=== PATIENT | female | born 1940 | race Caucasian/White ===

== ENCOUNTER 2017-11-28 11:11 | Emergency (ER) | payer OTHER, BC ==
[2017-11-28 11:20] VITALS: BP 133/74; PULSE 83; TEMP 99; BMI 28.3
[2017-11-28] MEDS ORDERED: SODIUM CHLORIDE 0.9% 1000 ML INFUS.BAG IV ONE (12:25)
[2017-11-28] MEDS ORDERED: ALPRAZolam 1 MG TABLET PO ONE (12:25)
[2017-11-28] MEDS ORDERED: ALPRAZolam 0.25 MG TABLET ONE (12:38)
[2017-11-28 12:40] LABS: RDW 16.1 % (11.6-15.6)
--- NOTE | 2017-11-28 12:41 | PDOC ---
History of Present Illness - General Chief Complaint: Psychiatric Stated Complaint: im having panic attacks Time Seen by Provider: 11/28/17 11:19 History Source: Patient Exam Limitations: No Limitations - History of Present Illness Initial Comments: 11/28/17 12:33 77 yo F with h/o anxiety CLL here c/o anxiety attack for last 3 days. states she usually gets attack every few years. no cp no sob. does have occasional palpitations. states she is under stress because she has had a few falls on her right knee and is undergoing evaluation by a orthopedic surgeon dr. mcneil, is stressed about her knee. no swelling. no current pain. states she has been feeling lighteaded, dry mouth and anxious for 3 days. no si no hi no ah. take welbutrin for anxiety, has been taking tried to see a psychiatrist called two and never received a call back. Past History - Past Medical History Allergies/Adverse Reactions: Allergies Allergy/AdvReac Type Severity Reaction Status Date / Time No Known Allergies Allergy Verified 11/28/17 11:13 Home Medications: Ambulatory Orders Bupropion HCl [Wellbutrin Xl -] 150 mg PO DAILY 01/11/15 Escitalopram Oxalate [Lexapro -] 10 mg PO DAILY 01/11/15 Alprazolam [Xanax] 0.25 mg PO DAILY PRN #10 tablet MDD 1 11/28/17 Anemia: No Asthma: No Cancer: Yes (CLL) Cardiac Disorders: No CVA: No COPD: No CHF: No Dementia: No Diabetes: No GI Disorders: Yes (GERD) Disorders: No HTN: No Hypercholesterolemia: Yes Liver Disease: No Seizures: No Thyroid Disease: No - Surgical History Abdominal Surgery: No Appendectomy: No Cardiac Surgery: No Cholecystectomy: No Lung Surgery: No Neurologic Surgery: No Orthopedic Surgery: No - Suicide/Smoking/Psychosocial Hx Smoking History: Never smoked Hx Alcohol Use: No Drug/Substance Use Hx: No Substance Use Type: None Hx Substance Use Treatment: No Review of Systems - Review of Systems Constitutional: No: Chills, Diaphoresis HEENTM: Yes: Other (dry mucous membranes). No: Eye Pain, Blurred Vision Respiratory: No: Cough, Orthopnea Cardiac (ROS): No: Chest Pain, Edema : No: Burning, Dysuria Musculoskeletal: No: Back Pain, Gout, Joint Pain Neurological: Yes: Dizziness Psychiatric: Yes: Anxiety All Other Systems: Reviewed and Negative *Physical Exam - Vital Signs Last Vital Signs Temp Pulse Resp BP Pulse Ox 99 F 83 18 133/74 100 11/28/17 11:12 11/28/17 11:12 11/28/17 11:12 11/28/17 11:12 11/28/17 11:12 - Physical Exam Comments: 11/28/17 12:42 awake alert nad dry mucous membranes, dry lips . lungs clear bilaterally heart rrr no mrg abd soft nt nd. skin warm and dry. psych no si no hi. anxious appearing, fidgeting. normal affect. ED Treatment Course - LABORATORY CBC & Chemistry Diagram: 11/28/17 12:27 11/28/17 12:27 Medical Decision Making - Medical Decision Making 11/28/17 12:44 differential anxiety, dysrhtymia, anemia, electrolyte abnormalities. dehydration. plan iv hydration labs ekg. anxioulytics reassess. 11/28/17 14:36 labs noted for elevated wbc. pt h/o cll. per pcp last was 16 in 05/2017 has been referred to hematology many times but doesn't follow up. ua negative. otherwsie labs unremarkable. the xanax helped some. duplex for knee pain negative. will dc wiht referral for dr. santiago, and pcpl. *DC/Admit/Observation/Transfer Diagnosis at time of Disposition: Anxiety, Leukocytosis - Discharge Dispostion Disposition: HOME Condition at time of disposition: Improved - Prescriptions Prescriptions: Alprazolam [Xanax] 0.25 mg PO DAILY PRN #10 tablet MDD 1 PRN Reason: Anxiety - Referrals Referrals: Jake Roach [Primary Care Provider] - Bandar Sorensen NP [Nurse Practitioner] - Fabian Santiago MD [Staff Physician] - - Patient Instructions Printed Discharge Instructions: DI for Leukocytosis, Anxiety Disorders Additional Instructions: you should follow up with dr. Gordon, for psychiatry for your anxiety call to schedule. see referal information you can take xanax 0.25 mg as needed at night for anxiety. your WBC is 24, you need to follow up with a print color operator. call dr. Santiago to schedul see referral information. your ultrasound was negative for a blood clot. - Post Discharge Activity
[2017-11-28 12:46] LABS: HEMATOCRIT 43.1 % (32.4-45.2); HEMOGLOBIN 14.4 GM/dl (10.7-15.3); MCHC 33.5 g/dl (32.0-36.0); MEAN CELL VOLUME 89.6 fl (80-96); MEAN PLT VOLUME 9.4 fl (7.5-11.1); PLATELET COUNT 890 K/MM3 (134-434); RBC 4.81 M/mm3 (3.60-5.2); WHITE BLOOD COUNT 24.3 K/mm3 (4.0-10.8)
[2017-11-28 12:56] LABS: ALBUMIN 4.2 g/dl (3.5-5.0); ALK PHOS 75 U/L (32-92); ANION GAP 7 MMOL/L (8-16); BLOOD UREA NITROGEN 14 mg/dl (7-18); CALCIUM 9.2 mg/dl (8.4-10.2); CHLORIDE 106 mmol/L (98-107); CO2 25 mmol/L (22-28); CREATININE 0.8 mg/dl (0.6-1.3); GLUCOSE,RANDOM 106 mg/dl (74-106); SGOT/AST 24 U/L (10-42); SGPT/ALT 34 U/L (10-40); SODIUM 138 mmol/L (136-145); TOT PROT 6.4 g/dl (6.4-8.3)
[2017-11-28] MEDS ORDERED: IBUPROFEN 400 MG TABLET (FP) PO ONE ×2 (13:56→13:57)
[2017-11-28] MEDS ORDERED: IBUPROFEN 600 MG TABLET (FP) PO ONE (13:56)
[2017-11-28 14:05] LABS: URINE APPEARANCE Clear; URINE BILIRUBIN Negative (NEGATIVE); URINE COLOR Yellow; URINE GLUCOSE (UA) Negative (NEGATIVE); URINE KETONE 1+ (NEGATIVE); URINE LEUK ESTERASE Negative (NEGATIVE); URINE NITRITE Negative (NEGATIVE); URINE PROTEIN Negative (NEGATIVE); URINE UROBILINOGEN 0.2 (0.2-1.0)
[2017-11-28 14:28] LABS: PLATELET ESTIMATE INCREASED
--- NOTE | 2017-11-29 12:18 | EKG ---
Test Reason : Blood Pressure : / mmHG Vent. Rate : 076 BPM Atrial Rate : 076 BPM P-R Int : 142 ms QRS Dur : 082 ms QT Int : 406 ms P-R-T Axes : 065 006 035 degrees QTc Int : 456 ms NORMAL SINUS RHYTHM NONSPECIFIC T WAVE ABNORMALITY ABNORMAL ECG NO PREVIOUS ECGS AVAILABLE Confirmed by KELLY RUGGIERO, VIVIEN ([id number]) on 11/29/2017 12:18:27 PM Referred By: BHAVIN CHAPMAN Confirmed By:VIVIEN MENDOZA MD
== END 2017-11-28 14:53 | disposition home or self-care (01) ==
LOC: FER 11:11 → SUPCPDRO 11:11 → FER 14:53
PROC: 3E0337Z Introduction of Electrolytic and Water Balance Substance into Peripheral Vein, Percutaneous Approach (ICD-10-PCS; principal; 2017-11-28)
DX: C91.10 Chronic lymphocytic leukemia of B-cell type not having achieved remission (principal); F41.9 Anxiety disorder, unspecified; D72.829 Elevated white blood cell count, unspecified; E78.00 Pure hypercholesterolemia, unspecified; K21.9 Gastro-esophageal reflux disease without esophagitis
CPT/HCPCS: 36415; 80053; 81003; 84443; 84484; 85025; 93005; 93971-TC; 96361; 96374; 99283-25; J7030

== ENCOUNTER 2017-12-10 08:44 | Emergency (ER) | payer OTHER, BC ==
[2017-12-10 08:49] VITALS: BP 129/75; PULSE 70; TEMP 98.3; BMI 26.5
[2017-12-10] MEDS ORDERED: LORazepam 1 MG TABLET PO ONE (09:19)
[2017-12-10] MEDS ORDERED: LORazepam 0.5 MG TABLET ONE (09:22)
--- NOTE | 2017-12-10 09:24 | PDOC ---
History of Present Illness - General Chief Complaint: Lightheaded Stated Complaint: light headed Time Seen by Provider: 12/10/17 08:45 History Source: Patient, Spouse, Old Records Exam Limitations: No Limitations - History of Present Illness Initial Comments: 12/10/17 09:19 77-year-old female with history of CLL, depression, anxiety presents with panic attack. Patient reports that she has spent many years dealing with depression anxiety and in the last several months, to symptoms worsen. She will wake up daily with panic attacks, general anxiety. She reports feeling general malaise and decreased appetite because of her anxiety. The patient was seen here approximately 2 weeks ago and evaluated. At that time, patient had elevated white blood cell count. She did follow up with a window installation subcontractor with her blood work and reported at that time that this is consistent with her CLL and that no interventions were required at the time. 2 weeks ago, the patient was started on Xanax 0.25 mg that had gradually increased to 3 times a day. Patient reports adherence to the medication but reported no improvement of symptoms. The patient attempted to call her psychiatrist today, but came to the ER because she was unable to get hold of him. Patient denies chest pain or short of breath. Denies suicidal or homicidal ideation. Patient reporting her panic attack. Denies other symptoms such as fevers, chills, cough, vomiting, diarrhea , dysuria. She is requesting a referral for a second opinion for psychiatrist. Past History - Past Medical History Allergies/Adverse Reactions: Allergies Allergy/AdvReac Type Severity Reaction Status Date / Time No Known Allergies Allergy Verified 12/10/17 08:45 Home Medications: Ambulatory Orders Bupropion HCl [Wellbutrin Xl -] 150 mg PO DAILY 01/11/15 Escitalopram Oxalate [Lexapro -] 10 mg PO DAILY 01/11/15 Alprazolam [Xanax] 0.25 mg PO DAILY PRN #10 tablet MDD 1 11/28/17 Anemia: No Asthma: No Cancer: Yes (CLL) Cardiac Disorders: No CVA: No COPD: No CHF: No Dementia: No Diabetes: No GI Disorders: Yes (GERD) Disorders: No HTN: No Hypercholesterolemia: Yes Liver Disease: No Seizures: No Thyroid Disease: No Other medical history: falls - Surgical History Abdominal Surgery: No Appendectomy: No Cardiac Surgery: No Cholecystectomy: No Lung Surgery: No Neurologic Surgery: No Orthopedic Surgery: No - Suicide/Smoking/Psychosocial Hx Smoking History: Never smoked Hx Alcohol Use: No Drug/Substance Use Hx: No Substance Use Type: None Hx Substance Use Treatment: No Review of Systems - Review of Systems Able to Perform ROS?: Yes Comments:: 12/10/17 09:24 GENERAL/CONSTITUTIONAL: [No fever or chills. No weakness. No weight change.] HEAD, EYES, EARS, NOSE AND THROAT: [No change in vision. No ear pain or discharge. No sore throat.] CARDIOVASCULAR: [No chest pain or shortness of breath.] RESPIRATORY: [No cough, wheezing, or hemoptysis.] GASTROINTESTINAL: [No nausea, vomiting, diarrhea or constipation. No rectal bleeding.] GENITOURINARY: [No dysuria, frequency, or change in urination.] MUSCULOSKELETAL: [No joint or muscle swelling or pain. No neck or back pain.] SKIN AND BREASTS: [No rash or easy bruising.] NEUROLOGIC: [No headache, vertigo, loss of consciousness, or loss of sensation.] PSYCHIATRIC: + anxiety ENDOCRINE: [No increased thirst. No abnormal weight change.] HEMATOLOGIC/LYMPHATIC: [No anemia, easy bleeding, or history of blood clots.] ALLERGIC/IMMUNOLOGIC: [No hives or skin allergy. No latex allergy.] *Physical Exam - Vital Signs Last Vital Signs Temp Pulse Resp BP Pulse Ox 98.3 F 70 18 129/75 98 12/10/17 08:45 12/10/17 08:45 12/10/17 08:45 12/10/17 08:45 12/10/17 08:45 - Physical Exam Comments: 12/10/17 09:33 GENERAL: Awake, alert, and fully oriented, in no acute distress HEAD: No signs of trauma EYES: EOMI, sclera anicteric, conjunctiva clear ENT: Auricles normal inspection, hearing grossly normal, nares patent, Moist mucosa NECK: Normal ROM, supple LUNGS: Breath sounds equal, clear to auscultation bilaterally. No wheezes, and no crackles HEART: Regular rate and rhythm, normal S1 and S2, no murmurs, rubs or gallops ABDOMEN: Soft, nontender, No guarding, no rebound. No masses EXTREMITIES: Normal range of motion, no edema. No clubbing or cyanosis. No cords, erythema, or tenderness NEUROLOGICAL: Cranial nerves II through XII grossly intact. Normal speech, normal gait SKIN: Warm, Dry, normal turgor, no rashes or lesions noted. PSYCH: +anxious Medical Decision Making - Medical Decision Making 12/10/17 09:34 Vital Signs Temp Pulse Resp BP Pulse Ox 98.3 F 70 18 129/75 98 12/10/17 08:45 12/10/17 08:45 12/10/17 08:45 12/10/17 08:45 12/10/17 08:45 I had a lengthy discussion with the patient in regards to her history and physical. I do suspect that this is likely a panic attack and anxiety and not currently an medical component. The patient reports that she's been having daily panic attacks without relief from 0.25 mg of Xanax. She denies any other symptoms. The patient is requesting a referral to another psychiatrist. She is currently also seeing a psychologist. At this time, I will trial 1 mg oral Ativan and assess the patient. Either way, the patient will need a referral for outpatient psych management. 12/10/17 10:10 Pt feels relief of symptoms. She and her would like to go home. I advised the patient that she should follow up with her psychiatrist in regards for medication management. Pt feels comfortable with that plan. *DC/Admit/Observation/Transfer Diagnosis at time of Disposition: Anxiety - Discharge Dispostion Disposition: HOME Condition at time of disposition: Improved Decision to Admit order: No - Referrals Referrals: Kelly Vega MD [Staff Physician] - - Patient Instructions Printed Discharge Instructions: DI for Anxiety -- Adult Additional Instructions: You have received 1 mg ativan by mouth (one time dose). Please follow up with your psychiatrist. Continue your xanax prescription as written by your psychiatrist. Call to schedule an appointment. - Post Discharge Activity
== END 2017-12-10 10:17 | disposition home or self-care (01) ==
LOC: FER 08:44
DX: F41.0 Panic disorder [episodic paroxysmal anxiety] (principal); C91.10 Chronic lymphocytic leukemia of B-cell type not having achieved remission; F41.8 Other specified anxiety disorders; K21.9 Gastro-esophageal reflux disease without esophagitis; E78.00 Pure hypercholesterolemia, unspecified
CPT/HCPCS: 99281-25

== ENCOUNTER 2017-12-29 10:08 | Emergency (ER) | payer OTHER, BC ==
[2017-12-29 10:23] VITALS: BP 132/70; PULSE 80; TEMP 98.1; BMI 27.4
--- NOTE | 2017-12-29 11:47 | PDOC ---
History of Present Illness - General Chief Complaint: Psychiatric Stated Complaint: "PANIC ATTACK " LIGHTHEADED Time Seen by Provider: 12/29/17 11:17 History Source: Patient Exam Limitations: No Limitations - History of Present Illness Initial Comments: 77F with pmh of CLL, depression, anxiety presents with acute on chronic symptoms on anxiety disorder Patient reports that she has become anxious since her fall 3 months ago. Was last seen in the ED 20 days ago for the same symptoms. Was given a refferal for a psychiatrist but never followed through. Now asking for Ativan to cam her down. Patient has a chronically elevated white blood cell count. She did follow up with a customer leader with her blood work 2 weeks ago and was told she didn't need medication for it. Patient denies chest pain or short of breath. Denies suicidal or homicidal ideation. Patient reporting her panic attack. Denies other symptoms such as fevers, chills, cough, vomiting, diarrhea, dysuria. Past History - Past Medical History Allergies/Adverse Reactions: Allergies No Known Allergies Allergy (Verified 12/29/17 10:09) Home Medications: Ambulatory Orders Bupropion HCl [Wellbutrin Xl -] 150 mg PO DAILY 01/11/15 Escitalopram Oxalate [Lexapro -] 10 mg PO DAILY 01/11/15 Alprazolam [Xanax] 0.25 mg PO DAILY PRN #10 tablet MDD 1 11/28/17 - Social History Smoking Status: Former smoker *Physical Exam - Vital Signs Last Vital Signs Temp Pulse Resp BP Pulse Ox 98.1 F 80 16 132/70 100 12/29/17 10:09 12/29/17 10:09 12/29/17 10:09 12/29/17 10:09 12/29/17 10:09 - Physical Exam General Appearance: Yes: Nourished, Disheveled HEENT: positive: EOMI, SHEILA, Normal ENT Inspection Neck: positive: Normal Thyroid Respiratory/Chest: positive: Lungs Clear, Normal Breath Sounds. negative: Chest Tender, Respiratory Distress Cardiovascular: positive: Regular Rhythm, Regular Rate, S1, S2 Gastrointestinal/Abdominal: positive: Normal Bowel Sounds *DC/Admit/Observation/Transfer Diagnosis at time of Disposition: Anxiety - Discharge Dispostion Disposition: HOME Condition at time of disposition: Stable Decision to Admit order: No - Referrals Referrals: Kelly Vega MD [Staff Physician] - - Patient Instructions Printed Discharge Instructions: DI for Closed Head Injury Additional Instructions: Come back to the ER in 7-10 for staple removal. Come back to the ER for any new, worsening or concerning symptoms such as headache, memory loss, vomiting, difficulty sleeping, change in mood, or change in vision. - Post Discharge Activity
--- NOTE | 2017-12-29 11:52 | PDOC ---
Attending Attestation - Resident Resident Name: ArletTim - ED Attending Attestation I have performed the following: I have examined & evaluated the patient, The case was reviewed & discussed with the resident, I agree w/resident's findings & plan, Exceptions are as noted - HPI HPI: 12/29/17 12:26 77yo F hx depression, anxiety, CLL presents to the ED requesting ativan for her anxiety. Pt reports recent increase in sxs of sadness and anxiety over the last month since she suffered a fall. Pt states she was seen here recently and given ativan in the ED which "made me feel calm and like myself again." Pt and her report she has been on lexapro and wellbutryn for years but they don't seem to be working any more. They have seen 2 psychiatrists over the last few years but feel their psychiatrist is not listening to them. Pt was referred to Dr. Vega during her last visit but her states they have not followed up. Patient denies dizziness, headache, visual sxs, chest pain or short of breath. Denies suicidal or homicidal ideation. Denies AH/VH. Denies fevers, chills, cough, vomiting, diarrhea, dysuria. She requests referral to the psychiatrist again. - Physicial Exam PE: 12/29/17 12:33 GENERAL: Awake, alert, and fully oriented, in no acute distress. Resting comfortably in bed. HEAD: No signs of trauma EYES: PERRLA, EOMI, sclera anicteric, conjunctiva clear ENT: Auricles normal inspection, hearing grossly normal, nares patent, oropharynx clear without exudates. Moist mucosa NECK: Normal ROM, supple, no lymphadenopathy, JVD, or masses LUNGS: Breath sounds equal, clear to auscultation bilaterally. No wheezes, and no crackles HEART: Regular rate and rhythm, normal S1 and S2, no murmurs, rubs or gallops ABDOMEN: Soft, nontender, normoactive bowel sounds. No guarding, no rebound. No masses EXTREMITIES: Normal range of motion, no edema. No clubbing or cyanosis. No cords, erythema, or tenderness NEUROLOGICAL: Normal speech, cranial nerves intact, 5/5 strength in all 4 extremities, normal sensation to light touch in all 4 extremities, normal cerebellar exam, normal gait, normal reflexes and tone SKIN: Warm, Dry, normal turgor, no rashes or lesions noted. - Medical Decision Making 12/29/17 12:35 77yo F hx anxiety, depression, CLL (states she was told no tx needed) presents requesting ativan for anxiety. Pt does not appear overtly anxious on evaluation. Had a lengthy discussion with patient regarding the importance of follow up with her psychiatrist and that it can takes months to titrate medications. Pt has no emergent need for psych eval in ED. Since pt can not see her psychiatrist for another day, will dose pt 0.5mg ativan PO in the ED. Pt requested referral for our psychiatrist as well, all information was provided to pt as requested. Pt is clinically well appearing with normal vitals, requests DC home. I discussed the physical exam findings, ancillary test results and final diagnoses with the patient. I answered all of the patient's questions. The patient was satisfied with the care received and felt comfortable with the discharge plan and treatment plan. The patient will call their psychiatrist within 24 hours to arrange follow-up and will return to the Emergency Department with any new, persistent or worsening symptoms.
[2017-12-29] MEDS ORDERED: LORazepam 0.5 MG TABLET PO ONE (12:26)
[2017-12-29] MEDS ORDERED: LORazepam 0.5 MG TABLET ONE (12:28)
== END 2017-12-29 12:45 | disposition home or self-care (01) ==
LOC: FER 10:08
DX: F41.8 Other specified anxiety disorders (principal); C91.10 Chronic lymphocytic leukemia of B-cell type not having achieved remission; Z87.891 Personal history of nicotine dependence
CPT/HCPCS: 99282-25

== ENCOUNTER 2018-01-09 11:17 | Emergency (ER) | payer OTHER, BC ==
[2018-01-09 11:22] VITALS: BMI 24.9
[2018-01-09 11:24] VITALS: TEMP 98.1
--- NOTE | 2018-01-09 12:04 | PDOC ---
History of Present Illness - General Chief Complaint: Psychiatric Stated Complaint: PANICK ATTACK, LIGHTHEADED Time Seen by Provider: 01/09/18 12:03 - History of Present Illness Initial Comments: 01/09/18 13:54 Chief complaint: Panic attack History of present illness: Patient is suffers from recurrent panic attacks, maintained on Wellbutrin and Lexapro, recently had her Lexapro dose increased and subsequently began feeling more anxious. Says that "she feels like she is going to ". No known cardiac history Review of systems: Denies chest pain, shortness of breath, abdominal pain, nausea, vomiting, diarrhea, diaphoresis, visual or focal neurologic symptoms, unsteadiness of gait. Denies recent fever/chills, headache, URI symptoms, sore throat, cough. Remainder systems reviewed and found to be negative Past medical history: Depression, anxiety. Social/family history reviewed and noncontributory Physical exam: Alert and oriented well-developed well-nourished moderately anxious but no acute distress. Cooperative Afebrile, vital signs normal PERRLA, fundi benign, ENT clear Neck supple without bruit mass or nodes Chest clear to P&A with full breath sounds throughout bilaterally CV S1 and S2 normal without murmur rub or gallop pulses full and symmetric no JVD or edema no bruits 70 and regular Abdomen soft nontender without mass or organomegaly Neurological C2 to 12 intact. No focal sensory or motor deficits. Strength full and symmetric. Gait stable and unimpaired Extremities no CCE Skin clear, no rash, adequate turgor and wet mucous membranes Psychiatric: Admits a long-standing depression, worse recently, had a good day yesterday, but today feels worse. Denies suicidal ideations. Denies any suicidal actions or gestures in the past, or psychiatric hospitalizations. Impression: Anxiety, panic attacks, depression. Patient is treated by general M.D. current exacerbation of anxiety is probably related to recent increase in Lexapro dose. Plan: EKG is normal. Physical exam is normal. Small dose of Ativan recommended for several days until adjusted to increase Lexapro dose. Discussed exercises such as walking, yoga, meditation, other relaxation activities. Her significant other was present, and acknowledges that he has been attempting to have the patient go for walks and he will continue to do this. Spoke to her son by phone , informing him of the treatment plan. Patient appears reassured, asymptomatic now, and agrees to initiate contact with a psychiatrist for possibly improved management of her condition. Past History - Past Medical History Allergies/Adverse Reactions: Allergies Allergy/AdvReac Type Severity Reaction Status Date / Time No Known Allergies Allergy Verified 01/09/18 11:18 Home Medications: Ambulatory Orders Bupropion HCl [Wellbutrin Xl -] 150 mg PO DAILY 01/11/15 Escitalopram Oxalate [Lexapro -] 15 mg PO DAILY 01/11/15 LORazepam [Ativan] 0.5 mg PO BID PRN #6 tablet MDD 2 01/09/18 Anemia: No Asthma: No Cancer: Yes (CLL) Cardiac Disorders: No CVA: No COPD: No CHF: No Dementia: No Diabetes: No GI Disorders: Yes (GERD) Disorders: No HTN: No Hypercholesterolemia: Yes Liver Disease: No Psychiatric Problems: Yes (DEPRESSION) Seizures: No Thyroid Disease: No - Surgical History Abdominal Surgery: No Appendectomy: No Cardiac Surgery: No Cholecystectomy: No Lung Surgery: No Neurologic Surgery: No Orthopedic Surgery: No - Suicide/Smoking/Psychosocial Hx Smoking History: Never smoked Have you smoked in the past 12 months: No If you are a former smoker, when did you quit?: OVER 50 YEARS Hx Alcohol Use: No Drug/Substance Use Hx: No Substance Use Type: Alcohol Hx Substance Use Treatment: No *Physical Exam - Vital Signs Last Vital Signs Temp Pulse Resp BP Pulse Ox 98.1 F 81 17 127/80 100 01/09/18 11:18 01/09/18 11:18 01/09/18 11:18 01/09/18 11:18 01/09/18 11:18 Moderate Sedation - Procedure Monitoring Vital Signs: Procedure Monitoring Vital Signs Temperature 98.1 F 01/09/18 11:18 Pulse Rate 81 01/09/18 11:18 Respiratory Rate 17 01/09/18 11:18 Blood Pressure 127/80 01/09/18 11:18 O2 Sat by Pulse Oximetry (%) 100 01/09/18 11:18 *DC/Admit/Observation/Transfer Diagnosis at time of Disposition: Anxiety - Discharge Dispostion Disposition: HOME Condition at time of disposition: Improved Decision to Admit order: No - Prescriptions Prescriptions: LORazepam [Ativan] 0.5 mg PO BID PRN #6 tablet MDD 2 PRN Reason: Anxiety - Referrals Referrals: Jake Roach [Primary Care Provider] - 2 Days Kelly Vega MD [Staff Physician] - 1 week - Patient Instructions Printed Discharge Instructions: DI for Anxiety -- Adult, DI for Panic Disorder Additional Instructions: Regular exercise like walking daily, gentle yoga, or meditation can be extremely helpful. Medication to help UA just to your increased Lexapro dosage for 2-3 days is recommended Since illness is somewhat complicated, it is strongly recommended that you see a psychiatrist for further evaluation and treatment as recommended. - Post Discharge Activity
[2018-01-09] MEDS ORDERED: LORazepam 0.5 MG TABLET PO ONE (12:56)
[2018-01-09 13:03] VITALS: BP 116/85; PULSE 85
[2018-01-09] MEDS ORDERED: LORazepam 0.5 MG TABLET ONE (13:04)
--- NOTE | 2018-01-10 10:30 | EKG ---
Test Reason : Blood Pressure : / mmHG Vent. Rate : 074 BPM Atrial Rate : 074 BPM P-R Int : 138 ms QRS Dur : 076 ms QT Int : 398 ms P-R-T Axes : 068 -05 026 degrees QTc Int : 441 ms NORMAL SINUS RHYTHM NORMAL ECG WHEN COMPARED WITH ECG OF 28-NOV-2017 12:41, NO SIGNIFICANT CHANGE WAS FOUND Confirmed by VIVIEN MENDOZA MD ([id number]) on 01/10/2018 10:30:06 AM Referred By: NANNETTE DIAS Confirmed By:VIVIEN MENDOZA MD
== END 2018-01-09 13:24 | disposition home or self-care (01) ==
LOC: FER 11:17
DX: F41.9 Anxiety disorder, unspecified (principal); Z87.891 Personal history of nicotine dependence; E78.00 Pure hypercholesterolemia, unspecified; F32.9 Major depressive disorder, single episode, unspecified; C91.10 Chronic lymphocytic leukemia of B-cell type not having achieved remission
CPT/HCPCS: 93005; 99281-25

== ENCOUNTER 2018-08-26 06:11 | Emergency (ER) | payer OTHER, BC ==
[2018-08-26 06:23] VITALS: BMI 26.6
--- NOTE | 2018-08-26 06:45 | PDOC ---
History of Present Illness - General Chief Complaint: Injury Stated Complaint: S/P FALL, LACERATION TO FOREHEAD Time Seen by Provider: 08/26/18 06:18 - History of Present Illness Initial Comments: 08/26/18 06:47 78 years old with past medical history significant for anxiety and depression presents to the emergency department status post mechanical trip and fall and laceration. Last night patient was walking across the floor states she normally shuffles her feet states that her feet got caught under her she fell forward hit her head. Denies any prodrome of dizziness lightheadedness headache chest pain shortness of breath prior to the fall. Hit her head sustained a hematoma and laceration above her right eye did not want to come to the emergency department and went to bed. noted several hours later the pillowcase was covered in blood and convinced to come to the emergency department. Complaining of mild pain above the right eye as well as pain to right knee Past History - Past Medical History Allergies/Adverse Reactions: Allergies Allergy/AdvReac Type Severity Reaction Status Date / Time No Known Allergies Allergy Verified 01/09/18 11:18 Home Medications: Ambulatory Orders Bupropion HCl [Wellbutrin Xl -] 150 mg PO DAILY 01/11/15 Escitalopram Oxalate [Lexapro -] 15 mg PO DAILY 01/11/15 LORazepam [Ativan] 0.5 mg PO BID PRN #6 tablet MDD 2 01/09/18 Anemia: No Asthma: No Cancer: Yes (CLL) Cardiac Disorders: No CVA: No COPD: No CHF: No Dementia: No Diabetes: No GI Disorders: Yes (GERD) Disorders: No HTN: No Hypercholesterolemia: Yes Liver Disease: No Psychiatric Problems: Yes (DEPRESSION) Seizures: No Thyroid Disease: No - Surgical History Abdominal Surgery: No Appendectomy: No Cardiac Surgery: No Cholecystectomy: No Lung Surgery: No Neurologic Surgery: No Orthopedic Surgery: No - Suicide/Smoking/Psychosocial Hx Smoking History: Unknown if ever smoked Have you smoked in the past 12 months: No Number of Cigarettes Smoked Daily: 0 If you are a former smoker, when did you quit?: OVER 50 YEARS Information on smoking cessation initiated: No Hx Alcohol Use: No Drug/Substance Use Hx: No Substance Use Type: Alcohol Hx Substance Use Treatment: No Review of Systems - Review of Systems Comments:: 08/26/18 06:48 ROS: A complete review of 10 out of 10 review of systems is taken and is negative apart from what is previously mentioned below and in the HPI. *Physical Exam - Vital Signs Last Vital Signs Temp Pulse Resp BP Pulse Ox 98.2 F 81 15 154/84 98 08/26/18 06:18 08/26/18 06:18 08/26/18 06:18 08/26/18 06:18 08/26/18 06:18 - Physical Exam Comments: 08/26/18 06:50 Vitals: Triage Vital signs reviewed General Appearance: no acute distress, well nourished well developed, Head: Head wrapped with pressure dressing secondary to hematoma and laceration and bleeding good hemostasis at this time Eyes: Pupils equal reactive round, extraocular movement intact Throat: Posterior oropharynx without erythema, mucous membranes moist, Neck: Supple;No Nucal rigidity, no midline tenderness Chest Wall: Nontender Cardiac: Regular rate and rhythym, no murmurs, no rubs, no gallops, Lungs: Clear to auscultation bilateral, good air movement bilaterally, Abdomen: Soft, non distended, normal bowel sounds, non tender to palpation Extremities: Full range of motion to all extremities, no cyanosis, clubbing, or edema, mild right knee tenderness to palpation Skin: Warm and dry, no rashes or lesions, no rash, no petechiae Neuro: AOX3; Cranial Nerves 2-12 grossly intact, Strength intact to all extremities, Sensation intact to all extremities,gait normal Psych: normal mood, normal affect ED Treatment Course - RADIOLOGY Radiology Studies Ordered: Category Date Time Status HEAD CT WITHOUT CONTRAST [CT] Stat CT Scan 08/26/18 06:26 Ordered Medical Decision Making - Medical Decision Making 08/26/18 06:51 Mechanical trip and fall with resulting head injury and minor knee injury. Given age we will CT head patient states tetanus is up-to-date. Normal neurologic examination moving all extremities We'll x-ray knee. Patient will need likely need closure of laceration status post head CT Dr. Raphael to follow up CT head and reevaluate patient *DC/Admit/Observation/Transfer Diagnosis at time of Disposition: Head injury Qualifiers: Encounter type: initial encounter Qualified Code(s): S09.90XA - Unspecified injury of head, initial encounter - Discharge Dispostion Condition at time of disposition: Good - Referrals - Patient Instructions - Post Discharge Activity
--- NOTE | 2018-08-26 07:17 | PDOC ---
*Physical Exam - Vital Signs Last Vital Signs Temp Pulse Resp BP Pulse Ox 98.2 F 81 15 154/84 98 08/26/18 06:18 08/26/18 06:18 08/26/18 06:18 08/26/18 06:18 08/26/18 06:18 ED Treatment Course - LABORATORY CBC & Chemistry Diagram: 08/26/18 08:20 08/26/18 08:20 Medical Decision Making - Medical Decision Making 08/26/18 07:17 Pt signed out to me from Dr. Jacome approximately6 7am 78y F hx of anxiety/depression presents s/p mechanical fall when her feet got caught and she fell forward w/o LOC last night went to sleep, then woke up with blood on the pillowcase so came in to to be evaluated. pt with pain above the right eye. deneis any syncopal prodromes including cp, sob, palpitations, lightheadedness, isioin changes, abd pain, back pain, neck pain, ehadache. exam: HEENT: Approx 1.4cm horiz laceration above lateral aspect of R eyebrow, EOMI, neg battles sign, neg racooon eyes SPINE: No focal ttp to cervical/thoracic/lumbar spine Ext: mild edema above R knee w/ ecchymosis no limitation of R knee/hip, mild diffuse anterior ttp over R knee Card: rrr, no mrg Abd: soft nontender, no rebound/guarding Pulm: cta b/l, no wheezing/rales 08/26/18 08:12 ct head/facial bones neg for fx/bleed xray knee neg for fx 08/26/18 09:04 laceration closed with 3 simple interupted sutures with good approximation 08/26/18 09:22 labs noted for leukoctyosis will obtain UA 08/26/18 10:45 pts UA is negative pt feeling well will dc with pmd fu return precautions wer discsused I discussed the physical exam findings, ancillary test results and final diagnoses with the patient. I answered all of the patient's questions. The patient was satisfied with the care received and felt comfortable with the discharge plan and treatment plan. The patient will call their primary care physician within 24 hours to arrange follow-up and will return to the Emergency Department with any new, persistent or worsening symptoms. 08/26/18 10:54 I mentioned to the pt about the leukocytosis - she states he is aware of it, and has CLL. it is being monitored by her oncologist. *DC/Admit/Observation/Transfer Diagnosis at time of Disposition: Head injury Qualifiers: Encounter type: initial encounter Qualified Code(s): S09.90XA - Unspecified injury of head, initial encounter Laceration of head Qualifiers: Encounter type: initial encounter Location of open wound of head: periocular area Foreign body presence: without foreign body Laterality: right Qualified Code(s): S01.111A - Laceration without foreign body of right eyelid and periocular area, initial encounter - Discharge Dispostion Condition at time of disposition: Improved Decision to Admit order: No - Referrals - Patient Instructions Printed Discharge Instructions: DI for Laceration Repair -- Simple, DI for Closed Head Injury Additional Instructions: Return to the emergency department immediately with ANY new, persistent or worsening symptoms including any redness, bleeding, purulent discharge, swelling or other concerns. Keep the area clean and dry for 48 hours. Afterwards he may clean gently with soap and water. Apply bacitracin twice a day. Keep the area away from the sun for the next 9 months, please use sunscreen and wear a hat if you need to be in the sun to improve appearance of the scar. Return in 3-5 days for suture removal. You MUST call and follow up with your doctor tomorrow for further evaluation of your symptoms. Results were discussed with you. Please make sure your doctor reviews the results of your emergency evaluation. Print Language: SINHALA - Post Discharge Activity Procedures - Consent Consent obtained: Verbal - Laceration/Wound Repair Right Upper Eye Wound Length: to 2.5 cm Wound Explored: clean Wound's Depth, Shape: superficial Anesthesia: 1% Lidocaine Amount of Anesthetic (ccs): 2 Wound Debrided: minimal Wound Repaired With: Sutures Suture Size/Type: 6:0 Number of Sutures: 3 Layer Closure: No Sterile Dressing Applied: Yes
[2018-08-26 08:44] LABS: BASO % 0.9 % (0-2.0); EOS % 1.7 % (0-4.5); HEMATOCRIT 38.7 % (32.4-45.2); HEMOGLOBIN 12.8 GM/dl (10.7-15.3); LYMPH % 42.2 % (8-40); MCH 30.6 pg (25.7-33.7); MCHC 33.2 g/dl (32.0-36.0); MEAN CELL VOLUME 92.4 fl (80-96); MEAN PLT VOLUME 8.9 fl (7.5-11.1); MONO % 7.3 % (3.8-10.2); NEUT % 47.9 % (42.8-82.8); PLATELET COUNT 594 K/MM3 (134-434); RBC 4.19 M/mm3 (3.60-5.2); RDW 15.1 % (11.6-15.6); WHITE BLOOD COUNT 16.4 K/mm3 (4.0-10.8)
[2018-08-26 08:54] LABS: ALBUMIN 3.6 g/dl (3.4-5.0); BILIRUBIN,TOTAL 0.7 mg/dl (0.2-1); CALCIUM 8.9 mg/dl (8.5-10); CREATININE 1.1 mg/dl (0.55-1.3); POTASSIUM 4.5 mmol/L (3.5-5.1); TOT PROT 5.6 g/dl (6.4-8.2)
[2018-08-26 09:46] VITALS: BP 148/83; PULSE 71; TEMP 98.3
[2018-08-26 10:57] LABS: EPITHELIAL CELLS FEW /hpf; URINE HYALINE CAST 0-1 /lpf
[2018-08-26 10:59] LABS: URINE AMORPHOUS SEDIMENT 2+
--- NOTE | 2018-08-27 13:42 | EKG ---
Test Reason : Blood Pressure : / mmHG Vent. Rate : 072 BPM Atrial Rate : 072 BPM P-R Int : 162 ms QRS Dur : 084 ms QT Int : 430 ms P-R-T Axes : 055 013 045 degrees QTc Int : 470 ms NORMAL SINUS RHYTHM NORMAL ECG WHEN COMPARED WITH ECG OF 09-JAN-2018 11:55, NO SIGNIFICANT CHANGE WAS FOUND Confirmed by Dayo Nuñez MD ([id number]) on 08/27/2018 1:42:16 PM Referred By: ISRAEL BRANDON Confirmed By:Dayo Nuñez MD
== END 2018-08-26 11:17 | disposition home or self-care (01) ==
LOC: FER 06:11
DX: S09.90XA Unspecified injury of head, initial encounter (principal); W18.39XA Other fall on same level, initial encounter; Y93.89 Activity, other specified; Y92.009 Unspecified place in unspecified non-institutional (private) residence as the place of occurrence of the external cause; K21.9 Gastro-esophageal reflux disease without esophagitis; F32.9 Major depressive disorder, single episode, unspecified; C91.10 Chronic lymphocytic leukemia of B-cell type not having achieved remission; E78.00 Pure hypercholesterolemia, unspecified; Z87.891 Personal history of nicotine dependence
CPT/HCPCS: 36415; 70450-TC; 70486-TC; 73562-TC-RT-FY; 80053; 81003; 81015; 82550; 84484; 85025; 93005; 99285-25

== ENCOUNTER 2018-08-29 08:49 | Emergency (ER) | payer OTHER, BC ==
--- NOTE | 2018-08-29 08:53 | PDOC ---
Suture Removal/Wound Check HPI - History of Present Illness Chief Complaint: Suture/Staple Removal(Here) Stated Complaint: RIGHT FACIAL SUTURE REMOVAL History Source: Yes: Patient Exam Limitations: Yes: No Limitations - Onset of Previous Treatment Comment:: 08/29/18 08:51 78 YOF Presenting with suture removal. s/p fall on 08/26/18, with 1.5 cm linear laceration to rt eyebrow, closed with [address] head and facial neg for acute injuries at that time. Has been cleaning the area with soap and water and topical neosporin /bandaid. No fever or chills, redness, pain, swelling or discharge/malodor. Keeping the wound clean. Past History - Past Medical History Allergies/Adverse Reactions: Allergies Allergy/AdvReac Type Severity Reaction Status Date / Time No Known Allergies Allergy Verified 01/09/18 11:18 Home Medications: Ambulatory Orders Bupropion HCl [Wellbutrin Xl -] 150 mg PO DAILY 01/11/15 Escitalopram Oxalate [Lexapro -] 15 mg PO DAILY 01/11/15 LORazepam [Ativan] 0.5 mg PO BID PRN #6 tablet MDD 2 01/09/18 Anemia: No Asthma: No Cancer: Yes (CLL) Cardiac Disorders: No CVA: No COPD: No CHF: No Dementia: No Diabetes: No GI Disorders: Yes (GERD) Disorders: No HTN: No Hypercholesterolemia: Yes Liver Disease: No Psychiatric Problems: Yes (DEPRESSION) Seizures: No Thyroid Disease: No - Surgical History Abdominal Surgery: No Appendectomy: No Cardiac Surgery: No Cholecystectomy: No Lung Surgery: No Neurologic Surgery: No Orthopedic Surgery: No - Suicide/Smoking/Psychosocial Hx Smoking History: Unknown if ever smoked Have you smoked in the past 12 months: No Number of Cigarettes Smoked Daily: 0 If you are a former smoker, when did you quit?: OVER 50 YEARS Hx Alcohol Use: No Drug/Substance Use Hx: No Substance Use Type: Alcohol Hx Substance Use Treatment: No *Review of Systems - Review of Systems Able to Perform ROS?: Yes Comments:: 08/29/18 08:51 Constitutional: no fevers or chills. MUSCULOSKELETAL: No joint pain and swelling. No muscle pain/arthralgias. Back: no back pain SKIN: no redness or skin changes, no discharge, no rash. +healing laceration/ wound. Hematologic: no easy bruising/bleeding. NEUROLOGIC: No weakness, numbness or tingling. Allergic/Immunologic: no allergies All other systems reviewed and negative, or as documented in HPI. *Physical Exam - Physical Exam Comments: 08/29/18 08:51 General: NAD, well appearing HEENT: NCAT, bilateral periorbital healing ecchymosis, rt upper eyebrow linear healing laceration 1.5cm, [address], no drainage, erythema or tenderness. EOMI, PERRL. Neck: nontender. Resp: no respiratory distress, breathing comfortably Vascular: 2+ radialis pulses symmetric and equal. Neuro: alert, CN II-XII grossly intact, MSK: SUMMERS x4, ROM. ambulatory Skin: color normal color, warm and well perfused. Cap refill <2 sec. Healing laceration to right upper eyebrow 1.5cm, linear, no drainage. nonbleeding, nontender. 08/29/18 08:51 Medical Decision Making - Medical Decision Making 08/29/18 08:52 Verbal consent was obtained. Wound well approximated, no erythema, induration, or discharge noted. 3 sutures completely removed in a sterile fashion. Patient tolerated procedure well, no complications. Patient advised to look for and return for any signs of infection such as redness, swelling, discharge, or worsening pain. *DC/Admit/Observation/Transfer Diagnosis at time of Disposition: Visit for suture removal - Discharge Dispostion Disposition: HOME Condition at time of disposition: Stable Decision to Admit order: No - Referrals - Patient Instructions Printed Discharge Instructions: DI for Suture Removal Additional Instructions: AFTER the stitches are removed: Clean your wound as directed. Carefully wash your wound with soap and water. Pat the area dry with a clean towel. Protect your wound. Your wound can swell, bleed, or split open if it is stretched or bumped. You may need to wear a bandage that supports your wound until it is completely healed. Minimize your scar. Use sunblock if your wound is exposed to the sun. Apply it every day after the stitches are removed. This will help prevent skin discoloration. Return to the emergency department immediately with ANY new, persistent or worsening symptoms including any redness, bleeding, purulent discharge, swelling or other concerns. you may clean gently with soap and water. Apply bacitracin twice a day. Keep the area away from the sun for the next 9 months, please use sunscreen and wear a hat if you need to be in the sun to improve appearance of the scar. Return in 3-5 days for suture removal. - Post Discharge Activity
[2018-08-29 08:58] VITALS: BP 109/66; PULSE 69; TEMP 98.8; BMI 25.7
== END 2018-08-29 09:06 | disposition home or self-care (01) ==
LOC: FER 08:49
DX: Z48.02 Encounter for removal of sutures (principal)
CPT/HCPCS: 99281-25

== ENCOUNTER 2021-03-19 23:25 | Inpatient (IN) | payer OTHER, BC ==
[2021-03-19 23:51] VITALS: BMI 24.7
[2021-03-20] MEDS ORDERED: PIPERACILLIN/TAZOB 4.5 GM 4.5 GM in DEXTROSE 5%-WATER 100 ML IVPB ONE (01:30)
[2021-03-20] MEDS ORDERED: VANCOMYCIN 1 GM PREMIX - 1 GM/200 ML BAG IVPB ONE (01:30)
[2021-03-20 01:31] LABS: BASO % 0.5 % (0-2.0); EOS % 1.4 % (0-4.5); HEMATOCRIT 35.6 % (32.4-45.2); HEMOGLOBIN 11.6 GM/dL (10.7-15.3); LYMPH % 25.7 % (8-40); MCH 30.7 pg (25.7-33.7); MCHC 32.5 g/dl (32.0-36.0); MEAN CELL VOLUME 94.3 fl (80-96); NEUT % 65.4 % (42.8-82.8); PLATELET COUNT 571 10^3/uL (134-434); RBC 3.77 M/mm3 (3.60-5.2); RDW 20.7 % (11.6-15.6); WHITE BLOOD COUNT 14.6 K/mm3 (4.0-10.0)
[2021-03-20 01:35] LABS: LACTIC ACID 2.1 mmol/L (0.4-2.0)
[2021-03-20 01:38] LABS: VENOUS BASE EXCESS 3.4 mmol/L (-2-2); VENOUS O2 SATURATION 63.3 % (70-80); VENOUS PCO2 50.1 mmHg (38-52); VENOUS PH 7.386 (7.310-7.410)
[2021-03-20] MEDS ORDERED: PIPERACILLIN/TAZOB 4.5 GM 4.5 GM/100 ML BAG IVPB ONE ×2 (01:39→12:05)
[2021-03-20] MEDS ORDERED: VANCOMYCIN 1 GRAM (PRE-DOCKED) 1,000 MG/250 ML BAG IVPB ONE (01:40)
[2021-03-20] MEDS ORDERED: SODIUM CHLORIDE 1,000 ML IV STA (01:53)
[2021-03-20 01:59] LABS: ALBUMIN 3.2 g/dl (3.4-5.0); MAGNESIUM 2.2 mg/dL (1.8-2.4)
[2021-03-20 02:02] LABS: CREATININE 0.7 mg/dL (0.55-1.3)
[2021-03-20 02:04] LABS: BILIRUBIN,TOTAL 0.8 mg/dL (0.2-1); TOT PROT 5.4 g/dl (6.4-8.2)
[2021-03-20 02:07] LABS: N-TERMINAL BNP 923.6 pg/ml (5-450)
[2021-03-20] MEDS ORDERED: ACETAMINOPHEN 1000 MG/100 ML BAG IVPB PRN (03:09)
[2021-03-20] MEDS ORDERED: DEXAMETHASONE SOD PHOSPHATE 4 MG/1 ML VIAL IVPUSH ONE (07:03)
[2021-03-20] MEDS ORDERED: DEXAMETHASONE SOD PHOSPHATE 10 MG/1 ML VIAL ONE (07:49)
[2021-03-20 07:50] LABS: ANISOCYTOSIS 2+; MACROCYTOSIS 1+; PLATELET ESTIMATE INCREASED
[2021-03-20] MEDS ORDERED: REMDESIVIR 200 MG in SODIUM CHLORIDE 250 ML IVPB ONE (09:30)
[2021-03-20 09:38] LABS: MAGNESIUM 2.2 mg/dL (1.8-2.4)
[2021-03-20] MEDS ORDERED: DEXAMETHASONE SOD PHOSPHATE 4 MG/1 ML VIAL IVPUSH SCH (10:00)
[2021-03-20] MEDS ORDERED: PIPERACILLIN/TAZOB 4.5 GM 4.5 GM in DEXTROSE 5%-WATER 100 ML IVPB SCH (10:00)
[2021-03-20] MEDS ORDERED: LORazepam 0.5 MG TABLET PO PRN (10:10)
[2021-03-20] MEDS ORDERED: ESCITALOPRAM OXALATE 10 MG TABLET ONE (12:04)
[2021-03-20] MEDS ORDERED: buPROPion HCL 100 MG TABLET ONE (12:04)
[2021-03-20] MEDS: ESCITALOPRAM OXALATE 10 MG TABLET PO SCH (12:21)
[2021-03-20] MEDS: PIPERACILLIN/TAZOB 4.5 GM 4.5 GM in DEXTROSE 5%-WATER 100 ML IVPB SCH ×2 (12:21→17:28)
[2021-03-20 12:47] LABS: EPI CELLS 10 /uL (0-25.1); HYALINE CASTS 0 /uL (0-3.1); URINE APPEARANCE CLEAR; URINE BACTERIA 7 /uL (0-1359); URINE BILIRUBIN NEGATIVE (NEGATIVE); URINE COLOR YELLOW; URINE GLUCOSE (UA) NEGATIVE (NEGATIVE); URINE KETONE NEGATIVE (NEGATIVE); URINE LEUK ESTERASE 1+ (NEGATIVE); URINE NITRITE NEGATIVE (NEGATIVE); URINE PROTEIN NEGATIVE (NEGATIVE); URINE RBC 6 /uL (0-23.9); URINE UROBILINOGEN 0.2 mg/dL (0.2-1.0); URINE WBC 8 /uL (0-25.8)
[2021-03-20] MEDS ORDERED: VANCOMYCIN 1 GRAM (PRE-DOCKED) 1,000 MG/250 ML BAG IVPB SCH ×2 (14:00)
[2021-03-20] MEDS: DEXTROSE 5%-0.45% SALINE 1,000 ML IV SCH (16:30)
[2021-03-20] MEDS ORDERED: PIPERACILLIN/TAZOBACTAM 4.5 GM VIAL IVPB ONE (17:27)
[2021-03-20] MEDS ORDERED: DEXTROSE 5%-WATER 100 ML IVPB ONE (17:27)
[2021-03-21] MEDS ORDERED: PIPERACILLIN/TAZOBACTAM 4.5 GM VIAL IVPB ONE ×2 (00:57→17:09)
[2021-03-21] MEDS: PIPERACILLIN/TAZOB 4.5 GM 4.5 GM in DEXTROSE 5%-WATER 100 ML IVPB SCH ×3 (01:16→17:14)
[2021-03-21] MEDS: ESCITALOPRAM OXALATE 10 MG TABLET PO SCH (10:55)
[2021-03-21] MEDS: DEXAMETHASONE SOD PHOSPHATE 4 MG/1 ML VIAL IVPUSH SCH (10:55)
[2021-03-21] MEDS: ENOXAPARIN NA (PORCINE) 40 MG/0.4 ML DISP.SYRIN SQ SCH (10:55)
[2021-03-21] MEDS: REMDESIVIR 100 MG in SODIUM CHLORIDE 250 ML IVPB SCH (10:56)
[2021-03-21] MEDS ORDERED: DEXTROSE 5%-WATER 100 ML IVPB ONE (17:10)
[2021-03-21] MEDS: DEXTROSE 5%-0.45% SALINE 1,000 ML IV SCH (17:35)
[2021-03-21] MEDS: buPROPion HCL 75 MG TABLET GT SCH (23:13)
[2021-03-22] MEDS ORDERED: DEXTROSE 5%-WATER 100 ML IVPB ONE ×3 (02:36→17:50)
[2021-03-22] MEDS ORDERED: PIPERACILLIN/TAZOBACTAM 4.5 GM VIAL IVPB ONE ×3 (02:36→17:50)
[2021-03-22] MEDS: PIPERACILLIN/TAZOB 4.5 GM 4.5 GM in DEXTROSE 5%-WATER 100 ML IVPB SCH ×3 (02:38→18:08)
[2021-03-22 09:43] LABS: BASO % 0.4 % (0-2.0); HEMATOCRIT 29.1 % (32.4-45.2); HEMOGLOBIN 9.8 GM/dL (10.7-15.3); LYMPH % 35.8 % (8-40); MCH 31.6 pg (25.7-33.7); MCHC 33.7 g/dl (32.0-36.0); MEAN CELL VOLUME 93.6 fl (80-96); MEAN PLT VOLUME 8.8 fl (7.5-11.1); MONO % 10.5 % (3.8-10.2); NEUT % 52.3 % (42.8-82.8); PLATELET COUNT 465 10^3/uL (134-434); RBC 3.11 M/mm3 (3.60-5.2); RDW 20.1 % (11.6-15.6); WHITE BLOOD COUNT 9.9 K/mm3 (4.0-10.0)
[2021-03-22] MEDS ORDERED: DEXAMETHASONE SOD PHOSPHATE 4 MG/1 ML VIAL IVPUSH SCH (10:00)
[2021-03-22] MEDS: REMDESIVIR 100 MG in SODIUM CHLORIDE 250 ML IVPB SCH (10:02)
[2021-03-22] MEDS: ENOXAPARIN NA (PORCINE) 40 MG/0.4 ML DISP.SYRIN SQ SCH (10:03)
[2021-03-22] MEDS: ESCITALOPRAM OXALATE 10 MG TABLET GT SCH (10:03)
[2021-03-22] MEDS: DEXAMETHASONE SOD PHOSPHATE 4 MG/1 ML VIAL IVPUSH SCH (10:03)
[2021-03-22] MEDS: buPROPion HCL 75 MG TABLET GT SCH ×2 (10:04→21:49)
[2021-03-22 10:29] LABS: BLOOD UREA NITROGEN 16.6 mg/dL (7-18); CALCIUM 8.2 mg/dL (8.5-10.1)
[2021-03-22 10:30] LABS: MAGNESIUM 2.1 mg/dL (1.8-2.4)
[2021-03-22 10:32] LABS: CREATININE 0.6 mg/dL (0.55-1.3)
[2021-03-22 10:34] LABS: BILIRUBIN,TOTAL 0.8 mg/dL (0.2-1); TOT PROT 4.4 g/dl (6.4-8.2)
[2021-03-22 10:38] LABS: ALBUMIN 2.5 g/dl (3.4-5.0)
[2021-03-22] MEDS ORDERED: SODIUM CHLORIDE 250 ML IV STA (22:17)
[2021-03-23] MEDS ORDERED: DEXTROSE 5%-WATER 100 ML IVPB ONE ×2 (01:13→10:44)
[2021-03-23] MEDS ORDERED: PIPERACILLIN/TAZOBACTAM 4.5 GM VIAL IVPB ONE ×2 (01:13→10:44)
[2021-03-23] MEDS: PIPERACILLIN/TAZOB 4.5 GM 4.5 GM in DEXTROSE 5%-WATER 100 ML IVPB SCH ×2 (01:15→10:54)
[2021-03-23 09:53] LABS: BASO % 0.3 % (0-2.0); EOS % 1.1 % (0-4.5); HEMATOCRIT 30.3 % (32.4-45.2); HEMOGLOBIN 9.8 GM/dL (10.7-15.3); LYMPH % 39.9 % (8-40); MCH 30.5 pg (25.7-33.7); MCHC 32.5 g/dl (32.0-36.0); MEAN PLT VOLUME 9.3 fl (7.5-11.1); MONO % 9.5 % (3.8-10.2); NEUT % 49.2 % (42.8-82.8); PLATELET COUNT 506 10^3/uL (134-434); RBC 3.22 M/mm3 (3.60-5.2); RDW 20.1 % (11.6-15.6); WHITE BLOOD COUNT 10.5 K/mm3 (4.0-10.0)
[2021-03-23 10:09] LABS: ALBUMIN 2.4 g/dl (3.4-5.0); BLOOD UREA NITROGEN 17.5 mg/dL (7-18); CALCIUM 7.8 mg/dL (8.5-10.1)
[2021-03-23 10:13] LABS: CREATININE 0.5 mg/dL (0.55-1.3)
[2021-03-23 10:14] LABS: BILIRUBIN,TOTAL 0.4 mg/dL (0.2-1); TOT PROT 4.2 g/dl (6.4-8.2)
[2021-03-23] MEDS: ESCITALOPRAM OXALATE 10 MG TABLET GT SCH (10:54)
[2021-03-23] MEDS: DEXAMETHASONE SOD PHOSPHATE 4 MG/1 ML VIAL IVPUSH SCH (10:54)
[2021-03-23] MEDS: buPROPion HCL 75 MG TABLET GT SCH ×2 (10:54→21:33)
[2021-03-23] MEDS: ENOXAPARIN NA (PORCINE) 40 MG/0.4 ML DISP.SYRIN SQ SCH (10:55)
[2021-03-24] MEDS: ESCITALOPRAM OXALATE 10 MG TABLET GT SCH (10:22)
[2021-03-24] MEDS: DEXAMETHASONE SOD PHOSPHATE 4 MG/1 ML VIAL IVPUSH SCH (10:22)
[2021-03-24] MEDS: buPROPion HCL 75 MG TABLET GT SCH ×2 (10:23→21:08)
[2021-03-24] MEDS: ENOXAPARIN NA (PORCINE) 40 MG/0.4 ML DISP.SYRIN SQ SCH (10:23)
[2021-03-24 10:45] LABS: BASO % 0.4 % (0-2.0); EOS % 1.8 % (0-4.5); HEMATOCRIT 31.7 % (32.4-45.2); HEMOGLOBIN 9.9 GM/dL (10.7-15.3); LYMPH % 35.5 % (8-40); MCH 29.7 pg (25.7-33.7); MCHC 31.1 g/dl (32.0-36.0); MEAN CELL VOLUME 95.4 fl (80-96); MONO % 8.9 % (3.8-10.2); NEUT % 53.4 % (42.8-82.8); PLATELET COUNT 479 10^3/uL (134-434); RBC 3.32 M/mm3 (3.60-5.2); RDW 20.2 % (11.6-15.6)
[2021-03-24 11:09] LABS: CALCIUM 8.3 mg/dL (8.5-10.1)
[2021-03-24 11:10] LABS: ALBUMIN 2.5 g/dl (3.4-5.0); BLOOD UREA NITROGEN 19.9 mg/dL (7-18); MAGNESIUM 2.2 mg/dL (1.8-2.4)
[2021-03-24 11:13] LABS: CREATININE 0.5 mg/dL (0.55-1.3)
[2021-03-24 11:14] LABS: BILIRUBIN,TOTAL 0.5 mg/dL (0.2-1); TOT PROT 4.4 g/dl (6.4-8.2)
[2021-03-24] MEDS: AMINO ACIDS/PROTEIN HYDROLYS 30 ML LIQUID.PKT PO SCH (17:54)
[2021-03-25] MEDS: AMINO ACIDS/PROTEIN HYDROLYS 30 ML LIQUID.PKT PO SCH ×2 (08:38→16:32)
[2021-03-25] MEDS: ESCITALOPRAM OXALATE 10 MG TABLET GT SCH (10:53)
[2021-03-25] MEDS: buPROPion HCL 75 MG TABLET GT SCH ×2 (10:53→21:44)
[2021-03-25] MEDS: ENOXAPARIN NA (PORCINE) 40 MG/0.4 ML DISP.SYRIN SQ SCH (10:53)
[2021-03-25] MEDS: DEXAMETHASONE SOD PHOSPHATE 4 MG/1 ML VIAL IVPUSH SCH (10:54)
[2021-03-25] MEDS ORDERED: INSULIN (NOVOLOG) ASPART 100 UNITS/ML 10ML VIAL ONE (11:16)
[2021-03-25 12:08] LABS: SARS-CoV-2 NAA Not Detected (Not Detected)
[2021-03-25] MEDS: MEMANTINE HCL 10 MG TABLET (FP) GT SCH (21:44)
[2021-03-26] MEDS: AMINO ACIDS/PROTEIN HYDROLYS 30 ML LIQUID.PKT PO SCH ×2 (08:22→17:20)
[2021-03-26] MEDS: DEXAMETHASONE SOD PHOSPHATE 4 MG/1 ML VIAL IVPUSH SCH (10:32)
[2021-03-26] MEDS: ENOXAPARIN NA (PORCINE) 40 MG/0.4 ML DISP.SYRIN SQ SCH (10:32)
[2021-03-26] MEDS: buPROPion HCL 75 MG TABLET GT SCH ×2 (10:33→21:08)
[2021-03-26] MEDS: ESCITALOPRAM OXALATE 10 MG TABLET GT SCH (10:33)
[2021-03-26] MEDS: MEMANTINE HCL 10 MG TABLET (FP) GT SCH ×2 (10:33→21:08)
[2021-03-26 12:22] LABS: BASO % 0.3 % (0-2.0); EOS % 1.4 % (0-4.5); HEMATOCRIT 34.2 % (32.4-45.2); HEMOGLOBIN 11.2 GM/dL (10.7-15.3); LYMPH % 38.9 % (8-40); MCH 30.9 pg (25.7-33.7); MCHC 32.7 g/dl (32.0-36.0); MEAN CELL VOLUME 94.6 fl (80-96); MEAN PLT VOLUME 8.9 fl (7.5-11.1); MONO % 6.4 % (3.8-10.2); PLATELET COUNT 496 10^3/uL (134-434); RBC 3.62 M/mm3 (3.60-5.2)
[2021-03-26 12:33] LABS: CHLORIDE 109 mmol/L (98-107); SODIUM 142 mmol/L (136-145)
[2021-03-26 12:35] LABS: BLOOD UREA NITROGEN 21.4 mg/dL (7-18); CALCIUM 8.7 mg/dL (8.5-10.1)
[2021-03-26 12:36] LABS: ALBUMIN 2.8 g/dl (3.4-5.0); ANION GAP 5 MMOL/L (8-16); CO2 28 mmol/L (21-32); GLUCOSE,RANDOM 84 mg/dL (74-106); MAGNESIUM 2.3 mg/dL (1.8-2.4)
[2021-03-26 12:38] LABS: SGPT/ALT 212 U/L (13-61)
[2021-03-26 12:39] LABS: CREATININE 0.5 mg/dL (0.55-1.3); SGOT/AST 33 U/L (15-37)
[2021-03-26 12:40] LABS: BILIRUBIN,TOTAL 0.4 mg/dL (0.2-1); TOT PROT 4.9 g/dl (6.4-8.2)
[2021-03-26 12:43] LABS: ALK PHOS 332 U/L (45-117)
[2021-03-27 08:34] LABS: BASO % 0.4 % (0-2.0); EOS % 0.7 % (0-4.5); HEMATOCRIT 34.4 % (32.4-45.2); HEMOGLOBIN 11.1 GM/dL (10.7-15.3); LYMPH % 29.2 % (8-40); MCH 30.4 pg (25.7-33.7); MCHC 32.3 g/dl (32.0-36.0); MONO % 6.9 % (3.8-10.2); NEUT % 62.8 % (42.8-82.8); PLATELET COUNT 517 10^3/uL (134-434); RBC 3.66 M/mm3 (3.60-5.2); RDW 20.1 % (11.6-15.6); WHITE BLOOD COUNT 19.9 K/mm3 (4.0-10.0)
[2021-03-27] MEDS: AMINO ACIDS/PROTEIN HYDROLYS 30 ML LIQUID.PKT PO SCH ×2 (08:42→17:23)
[2021-03-27 08:47] LABS: CHLORIDE 108 mmol/L (98-107); SODIUM 141 mmol/L (136-145)
[2021-03-27 08:49] LABS: BLOOD UREA NITROGEN 24.1 mg/dL (7-18); CALCIUM 8.6 mg/dL (8.5-10.1)
[2021-03-27 08:50] LABS: ALBUMIN 2.7 g/dl (3.4-5.0); ANION GAP 7 MMOL/L (8-16); CO2 27 mmol/L (21-32); MAGNESIUM 2.2 mg/dL (1.8-2.4)
[2021-03-27 08:53] LABS: CREATININE 0.5 mg/dL (0.55-1.3); SGOT/AST 116 U/L (15-37); SGPT/ALT 207 U/L (13-61)
[2021-03-27 08:54] LABS: TOT PROT 4.7 g/dl (6.4-8.2)
[2021-03-27 09:12] LABS: ALK PHOS 389 U/L (45-117); GLUCOSE,RANDOM 94 mg/dL (74-106)
[2021-03-27] MEDS: ESCITALOPRAM OXALATE 10 MG TABLET GT SCH (10:13)
[2021-03-27] MEDS: buPROPion HCL 75 MG TABLET GT SCH (10:14)
[2021-03-27] MEDS: MEMANTINE HCL 10 MG TABLET (FP) GT SCH ×2 (10:14→21:00)
[2021-03-27] MEDS: DEXAMETHASONE SOD PHOSPHATE 4 MG/1 ML VIAL IVPUSH SCH (10:15)
[2021-03-27] MEDS: ENOXAPARIN NA (PORCINE) 40 MG/0.4 ML DISP.SYRIN SQ SCH (10:16)
[2021-03-28] MEDS: DEXAMETHASONE SOD PHOSPHATE 4 MG/1 ML VIAL IVPUSH SCH (09:19)
[2021-03-28] MEDS: AMINO ACIDS/PROTEIN HYDROLYS 30 ML LIQUID.PKT PO SCH (09:19)
[2021-03-28] MEDS: MEMANTINE HCL 10 MG TABLET (FP) GT SCH (09:20)
[2021-03-28] MEDS: ENOXAPARIN NA (PORCINE) 40 MG/0.4 ML DISP.SYRIN SQ SCH (09:20)
[2021-03-28] MEDS ORDERED: FLUoxetine HCL 20 MG CAPSULE PO SCH (10:00)
[2021-03-28] MEDS ORDERED: POLYETHYLENE GLYCOL (HEALTHYLAX) 3350 17 GM PACKET PEG SCH (10:00)
[2021-03-28 10:03] LABS: BASO % 0.3 % (0-2.0); EOS % 0.9 % (0-4.5); HEMATOCRIT 32.3 % (32.4-45.2); HEMOGLOBIN 10.7 GM/dL (10.7-15.3); LYMPH % 27.1 % (8-40); MCH 31.3 pg (25.7-33.7); MCHC 33.2 g/dl (32.0-36.0); MEAN CELL VOLUME 94.3 fl (80-96); MONO % 7.6 % (3.8-10.2); NEUT % 64.1 % (42.8-82.8); PLATELET COUNT 457 10^3/uL (134-434); RBC 3.43 M/mm3 (3.60-5.2); RDW 20.6 % (11.6-15.6); WHITE BLOOD COUNT 17.5 K/mm3 (4.0-10.0)
[2021-03-28 10:30] LABS: ALBUMIN 2.7 g/dl (3.4-5.0); BLOOD UREA NITROGEN 21.9 mg/dL (7-18); CALCIUM 8.4 mg/dL (8.5-10.1); MAGNESIUM 2.4 mg/dL (1.8-2.4)
[2021-03-28 10:34] LABS: CREATININE 0.5 mg/dL (0.55-1.3)
[2021-03-28 10:35] LABS: BILIRUBIN,TOTAL 0.7 mg/dL (0.2-1); TOT PROT 4.7 g/dl (6.4-8.2)
[2021-03-28 11:21] LABS: ANISOCYTOSIS 2+; MACROCYTOSIS 0
[2021-03-28 14:51] VITALS: BP 134/65; PULSE 101; TEMP 97.2
== END 2021-03-28 16:15 | disposition home or self-care (01) | DRG 177 ==
LOC: JER 23:25 → JERBED 03-20 02:57 → J6S 03-20 15:54
PROVIDERS: ADMIT Internal Medicine; ATTEND Nurse Practitioner Family
PROC: XW033E5 Introduction of Remdesivir Anti-infective into Peripheral Vein, Percutaneous Approach, New Technology Group 5 (ICD-10-PCS; principal; 2021-03-20)
DX: U07.1 COVID-19 (principal); J96.01 Acute respiratory failure with hypoxia; J12.82 Pneumonia due to coronavirus disease 2019; C91.10 Chronic lymphocytic leukemia of B-cell type not having achieved remission; E87.2 Acidosis; N13.30 Unspecified hydronephrosis; F03.90 Unspecified dementia, unspecified severity, without behavioral disturbance, psychotic disturbance, mood disturbance, and anxiety; Z93.1 Gastrostomy status; F41.8 Other specified anxiety disorders; K76.0 Fatty (change of) liver, not elsewhere classified; R74.01 Elevation of levels of liver transaminase levels; E78.5 Hyperlipidemia, unspecified
CPT/HCPCS: 36415; 71045-TC-FY; 74177-TC; 76700-TC; 76775-TC; 80053; 81003; 82550; 82728; 82803; 82962; 83605; 83615; 83735; 83880; 84484; 85025; 85379; 86140; 87040; 87086; 87899; 93005; 93010; 97116-GP; 97162-GP; 99285-25; C9399; C9803; Q9967; U0003; U0005